=== PATIENT | female | born 1970 | race Caucasian/White ===

== ENCOUNTER 2021-08-31 06:55 | Emergency (ER) | payer OTHER ==
[~2021-08-31] VITALS: Ht 160 cm; Wt 68.0 kg
[2021-08-31 07:41] LABS: ABSOLUTE EOSINOPHILS 0.1 thou/uL (0.0-0.7); ABSOLUTE LYMPHOCYTES 1.1 thou/uL (0.8-5.3); ABSOLUTE MONOCYTES 0.4 thou/uL (0.0-1.2); ABSOLUTE NEUTROPHILS 3.5 thou/uL (1.6-8.1); BASOPHILS 0.7 %; EOSINOPHILS 1.9 %; HEMATOCRIT 39.8 % (37.0-47.0); HEMOGLOBIN 13.6 gm/dL (12.0-15.0); LYMPHOCYTES 20.9 %; MCH 29.5 pg (26.0-34.0); MCHC 34.2 g/dL (28.0-37.0); MONOCYTES 7.8 %; MPV 6.8 fl. (7.2-11.1); NUCLEATED RBCS 0 /100WBC; PLATELET COUNT* 268 thou/uL (150-400); POLYS 68.7 %; RBC 4.62 mil/uL (4.20-5.00); RDW-CV 13.1 % (10.5-14.5); WBC 5.1 thou/uL (4.0-11.0)
[2021-08-31 07:51] LABS: CREATININE 0.8 mg/dL (0.6-1.3); POTASSIUM 3.6 mmol/L (3.5-5.1)
[2021-08-31 07:56] LABS: TOTAL BILIRUBIN 0.5 mg/dL (<0.1-1.0); TOTAL PROTEIN 7.5 g/dL (6.4-8.2)
[2021-08-31] MEDS ORDERED: PROTONIX40 M4 PO (10:03)
[2021-08-31] MEDS ORDERED: ZOFRAN ODT4 MG DISSOLVE (10:03)
[2021-08-31] MEDS ORDERED: CARAFATE1 GM PO (10:03)
[2021-08-31] MEDS ORDERED: HYDROCODON-ACE1 EAC7 PO (10:03)
[2021-08-31 10:28] VITALS: BP 124/68
--- NOTE | 2021-08-31 14:47 | EKG ---
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 1970 Requested By: Saleem Fontenot Order Number: [id number] MD: Alexey Hallman Measurements Intervals [place] Rate: 65 P: 71 [place]: 176 QRS: 72 QRSD: 87 T: 67 QT: 397 QTc: 413 Interpretive Statements Sinus rhythm Compared to ECG 08/31/2021 07:09:13 Atrial premature complex(es) no longer present Electronically Signed On 08-31-2021 14:47:40 CDT by Alexey Hallman [email or web address] <ELECTRONICALLY SIGNED> By: Alexey Hallman MD, [facility] 08/31/21 1447 0934 0934 Alexey Hallman MD, [facility] /EPI
--- NOTE | 2021-08-31 14:47 | EKG ---
[place] [address] ELECTROCARDIOGRAM REPORT Name: ANGIE JONES Room: [facility]#: [id number] Admission: 08/31/21 Attend Phys: Discharge: 08/31/21 Date of : 66 Date of Service: 08/31/21708 Report #: [id number] THIS REPORT FOR: //name// [facility] ED Test Date: 2021-08-31 Test Time: 07:09:13 Pat Name: ANGIE JONES Department: Room: Gender: [employer]: KEMAR : 1970 Requested By: Saleem Fontenot Order Number: [id number] MD: Alexey Hallman Measurements Intervals [place] Rate: 64 P: 68 [place]: 172 QRS: 71 QRSD: 89 T: 60 QT: 410 QTc: 423 Interpretive Statements Sinus rhythm Atrial premature complex No previous ECG available for comparison Electronically Signed On 08-31-2021 14:46:53 CDT by Alexey Hallman [email or web address] <ELECTRONICALLY SIGNED> By: Alexey Hallman MD, [facility] 08/31/21 1446 8 8 Alexey Hallman MD, [facility] /EPI
== END 2021-08-31 10:29 | disposition home or self-care (01) ==
LOC: M.ERS 06:55
PROVIDERS: Emergency Medicine Emergency Medical Services
DX: R10.12 Left upper quadrant pain (principal); R10.13 Epigastric pain; R10.11 Right upper quadrant pain; R61 Generalized hyperhidrosis; R11.0 Nausea; Z88.1 Allergy status to other antibiotic agents